=== PATIENT | female | born 1960 | race Caucasian/White ===

== ENCOUNTER 2025-09-11 07:47 | Outpatient (OUT) | payer OTHER, SELFPAY ==
--- OUTSIDE RECORDS SUMMARY | 2025-09-08 09:15 | XMS_ITS ---
Author Organization [facility] in [place] Address [address] [place] [address] Care Team Providers Care Reading Interventionist Name Role Phone MarianoPablo kwongel Primary Care Provider Allergies No Known Allergies Results Component Value Reference Range Notes FERRITIN Reviewed date:09/10/2025 02:34:47 PM Interpretation: Performing Lab: Notes/Report: FERRITIN 526 IRON AND TIBC (WITH SAT) Reviewed date:09/10/2025 02:34:47 PM Interpretation: Performing Lab: Notes/Report: IRN 124 TIBC 371 %SAT 33 TSH Reviewed date:09/10/2025 02:34:47 PM Interpretation: Performing Lab: Notes/Report: TSH 2.01 HEMOGLOBIN A1C - IN OFFICE Reviewed date:09/10/2025 02:34:47 PM Interpretation: Performing Lab: Notes/Report: HEMOGLOBIN A1C - IN OFFICE 5.8 4.4 - 6.4 VITAMIN B12 LEVEL AND FOLATE (FOLIC ACID) Reviewed date:09/10/2025 02:34:47 PM Interpretation: Performing Lab: Notes/Report: VITAMIN B12 331 FOLATE, SERUM >22.3 CMP (COMP MET ALEXANDER) w/eGFR CK D-EPI Reviewed date:09/10/2025 02:34:47 PM Interpretation: Performing Lab: Notes/Report: GLUCOSE (FBS) 119 BUN (UREA NTORGEN) 34 CREATININE 1.7 GFR CKD 33 SODIUM (NA) 135 POTASSIUM (K) 4.5 CHLORIDE (CL) 99 CARBON DIOXIDE 24 CALCIUM 10.9 ALBUMIN, BLOOD 4.2 PROTEIN, TOTAL (TP) 7.7 ALKALINE PHOSPHATE (ALP) 78 ALT (SGPT) 10 AST (SGOT) 17 BILIRUBIN, TOTAL 0.5 CBC WITH DIFF Reviewed date:09/10/2025 02:34:47 PM Interpretation: Performing Lab: Notes/Report: WBC 5.4 RBC 3.5 HEMOGLOBIN 12.2 HEMATOCRIT 34.9 MCV 98.7 MCH 34.5 MCHC 34.9 RDW-SD 14.7 PLT 419.0 REASON FOR VISIT sob Medications Medication SIG (Take, Route, Frequency, Duration) Notes Start Date End Date Status Gemfibrozil 600 MG 1 tablet Orally a day Active Folic Acid 1 MG 1 tablet Orally 6 da ys a week(not wednesdays) Active Fluticasone-Salmeterol 250-50 MCG/ACT 1 puff Inhalation Twice a day 02/01/2024 Active Eletriptan Hydrobromide 40 MG 1 tablet Orally prn prn Active Cyproheptadine HCl 4 MG 1 tablet Orally once daily Active Caltrate 600 Active Albuterol Sulfate HFA 108 (90 Base) MCG/ACT 2 puffs Inhalation q6 hours prn; Duration: 30 days 02/28/2024 Active Albuterol Sulfate HFA 108 (90 Base) MCG/ACT 2 puffs Inhalation q6 hours prn; Duration: 30 days 09/08/2025 Active metFORMIN HCl ER 500 MG 2 tablet Orally bid Active Jardiance 10 MG 1 tablet Orally Once a day 05/14/2025 Active Fluticasone-Salmeterol 250-50 MCG/ACT 1 puff Inhalation Twice a day Unknown Sucralfate 1 GM 1 tablet on an empty stomach Orally Twice a day Unknown Polyethylene Glycol 3350 17 GM/SCOOP as directed Orally Unknown Pioglitazone HCl 30 MG 1 tablet Orally O nce a day Unknown Humira 40 MG/0.8ML 0.8 ml Subcutaneous Unknown Farxiga 5 MG 1 tablet Orally Once a day; Duration: 30 day(s) Unknown Cyclobenzaprine HCl 10 MG 1 tablet Orally bid Unknown Ajovy 225 MG/1.5ML 1.5 ml Subcutaneous Unknown Advair Diskus 250-50 MCG/ACT 1 puff Inhalation Twice a day; Duration: 90 days Unknown Actos 30 MG 1 tablet Orally Once a day Unknown Zonisamide 100 MG 2 capsules Orally On ce a day Active Vitamin D 5000IU Active Propranolol HCl ER 160 MG 1 capsule Oral ly Once a day Active Pantoprazole Sodium 40 MG 1 tablet Orall y BID; Duration: 90 days Active Multivitamin Active Methotrexate Sodium 2.5 MG 5 tablets Ora lly qweekly(monday) Active Social History Tobacco Use: Social History Observation Description Date Details (start date - stop date) Former Smoker NA - 11/27/1989 Tobacco Use/Smoking Question Answer Notes Patient is a former smoker When did you stop smoking? 11/27/1989 Problems Problem Type SNOMED Code ICD Code Onset Dates Problem Status W/U Status Risk Notes Problem Chronic obstructive pulmonary disease ([id number]) Chronic obstructive pulmonary disease, unspecified (J44.9) Active confirmed Vital Signs Weight 147.5 lbs 09/08/2025 Height 62 in 09/08/2025 Blood pressure systolic 126 mm Hg 09/08/20 25 Blood pressure diastolic 88 mm Hg 025 Heart Rate 75 /min 09/08/2025 Respiratory Rate 16 /min 09/08/2025 BMI 26.98 kg/m2 09/08/2025 Oximetry 99 % 09/08/2025 Encounters Encounter Location Date Provider Diagnosis [facility] [address] [place] [address] 09/08/2025 Kai Mariano Diabetes mellitus du e to underlying condition with diabetic chronic kidney disease E08.22 ; Other forms of dyspnea R06.09 ; Other fatigue R53.83 ; Chronic obstructive pulmonary disease, unspecified J44.9 ; Overweight E66.3 and Body mass index [BMI] 26.0-26.9, adult Z68.26 Assessments Encounter Date Diagnosis (ICD Code) Assessment Notes Treatment Notes Treatment Clinical Notes Section Notes 09/08/2025 Diabetes mellitus due to underlying condition with diabetic chronic kidney disease (ICD-10 - E08.22) a1c today stable diet/exercise monitor bs eye exam yearly - dilated foot exam daily 09/08/2025 Other forms of dyspnea (ICD-10 - R06.09) prob anemia - labs to be done STAT CTA chest to r/o PE as cause of sudden DAMIAN ?infection 09/08/2025 Other fatigue (ICD-10 - R53.83) labs - tx if abnormal d/w pt that she is probably anemia - ?iron def d/w pt that she is due for colonoscopy and rec she reach out to GI 09/08/2025 Chronic obstructive pulmonary disease, unspecified (ICD-10 - J44.9) monitor pft rec vaccines UTD 09/08/2025 Overweight (ICD-10 - E66.3) diet/exercise 09/08/2025 Body mass index [BMI] 26.0-26.9, adult (ICD-10 - Z68.26) Plan Of Treatment Medication Medication Name Sig Start Date Stop Date Notes Fluticasone-Salmeterol 250-5 0 MCG/ACT 1 puff Inhalation Twice a day 02/01/2024 Albuterol Sulfate HFA 108 (9 0 Base) MCG/ACT 2 puffs Inhalation q6 hours prn; Duration: 30 days 09/08/2025 metFORMIN HCl ER 500 MG 2 tablet Orally bid Jardiance 10 MG 1 tablet Orally Once a day 05/14/2025 Treatment Notes Assessment Notes Diabetes mellitus due to und erlying condition with diabetic chronic kidney disease a1c today stable diet/exercise monitor bs eye exam yearly - dilated foot exam daily Other forms of dyspnea prob anemia - labs to be done STAT CTA chest to r/o PE as cause of sudden DAMIAN ?infection Other fatigue labs - tx if abnormal d/w pt that she is probably anemia - ?iron def d/w pt that she is due for colonoscopy and rec she reach out to GI Chronic obstructive pulmonar y disease, unspecified monitor pft rec vaccines UTD Overweight diet/exercise Pending Test Test Name Order Date CTA Chest 09/08/2025 Next Appt Details Provider Name:Kai madden, 11/13/2025 01:15:00 PM, [address] [place], [address], Progress Notes * Torrie ARORADOB:1960 (65 yo F)Acc No.[id number]:09/08/2025 Established Patient: Torrie NEFF Provider: Kristy Mariano DO :1960 A ge:65 Y S ex:Female Date:09/08/2025 Address:[address] [place] [address], [facility] Check In:01:08 PM ESTCheck O ut:01:46 PM EST Subjective: * Chief Complaints: * S ob * HPI: G eneral: patient presents today for shortness of breath when moving around for about a week. increased fatigue. some night sweats. shes tried taking tylenol with no relief.- ED +DAMIAN x 1 week mildly dry cough no f/c/URI s/s +occ night sweats +fatigue +general weakness no LE edema +lightheaded no palp no syncope no chest pain no UE tingling using advair bid pt going to [place] later this week looks fatigued no bleeding -------- 04/2025 Hb 12.8, Cr 0.9, GFR 71 08/2025 Hb 11.3(L), Cr 1.4, GFR 42. * ROS: G eneral/Constitutional: Significant change in weight d enies. E xercise Intolerance d enies. N ight sweats a dmits. F ever d enies. E yes: Dry eyes D enies. V ision changes d enies. ? E NMT: Sore Throat d enies. N ose Bleeds d enies. D ifficulty hearing d enies. E ar pain d enies. N ose/sinus problems d enies. S noring d enies. B leeding gums d enies. D ry mouth d enies. M outh ulcers denies. O ral abnormalities d enies. T eeth problems d enies. C ardiovascular: Shortness of Breath w/Walking a dmits. S hortness of Breath w/lying flat d enies. A rm pain on exertion d enies. C hest pain d enies. H eart murmur d enies. P alpitations d enies. R espiratory: Coughing up blood d enies. C ough a dmits. S hortness of breath a dmits. W heezing d enies. G astrointestinal: Change in appetite d enies. V omiting blood d enies. A bdominal pain d enies. C onstipation d enies. D iarrhea d enies. V omiting d enies. G enitourinary: Dysuria/Increased Frequency d enies. H ematuria d enies. I ncontinence d enies. D ifficulty urinating d enies. M usculoskeletal: Swelling in the extremities d enies. A rthralgias/joint pain A dmits. B ack pain d enies. W eakness of muscles a dmits. M uscle aches d enies. S kin: Jaundice D enies. M ole(s) d enies. R vipin d enies. N eurologic: Dizziness a dmits. L oss of consciousness d enies.?Numbness d enies. W eakness a dmits. H eadache a dmits. S eizures d enies. P sychiatric: Alcohol abuse d enies. F eeling safe in relationship?denies. D epression d enies. A nxiety d enies. S leep Disturbances d enies. E ndocrine: Fatigue a dmits. H ematologic/Lymphatic: Swollen Glands d enies. B ruising d enies. ? A llergy/Immunology: Runny nose d enies. S inus pressure d enies. F requent sneezing d enies. H aleksandar d enies. I tching d enies. * Active Problem List M51.36 Other intervertebral disc degeneration, lumbar region Modified On:04/07/2022 Status:confirmed L30.9 Dermatitis, unspecif ied Modified On:04/07/2022 Status:confirmed K21.00 Gastro-esophageal re flux disease with esophagitis, without bleeding Modified On:12/13/2022 Status:confirmed E78.2 Mixed hyperlipidemia Modified On:12/13/2022 Status:confirmed M85.80 Other specified diso rders of bone density and structure, unspecified site Modified On:04/07/2022 Status:confirmed M41.86 Other forms of scoli osis, lumbar region Modified On:04/07/2022 Status:confirmed K76.0 Fatty (change of) li peggy, not elsewhere classified Modified On:04/07/2022 Status:confirmed K59.09 Other constipation Modified On:04/07/2022 Status:confirmed M51.26 Other intervertebral disc displacement, lumbar region Modified On:04/07/2022 Status:confirmed E08.22 Diabetes mellitus du e to underlying condition with diabetic chronic kidney disease Modified On:11/24/2023 Status:confirmed N18.30 Chronic kidney disea se, stage 3 unspecified Modified On:11/24/2023 Status:confirmed E66.09 Other obesity due to excess calories Modified On:05/04/2022 Status:confirmed Z68.32 Body mass index [BMI ] 32.0-32.9, adult Modified On:05/08/2023 Status:confirmed M06.9 Rheumatoid arthritis , involving unspecified site, unspecified whether rheumatoid factor present Modified On:05/08/2023 Status:confirmed G43.009 Migraine without aur a and without status migrainosus, not intractable Modified On:12/13/2022 Status:confirmed J43.9 Pulmonary emphysema, unspecified emphysema type Modified On:01/30/2023 Status:confirmed Z68.31 BMI 31.0-31.9,adult Modified On:01/30/2023 Status:confirmed E55.9 Vitamin D deficiency Modified On:11/24/2023 Status:confirmed E78.5 Dyslipidemia Modified On:01/30/2023 Status:confirmed E11.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 Modified On:05/08/2023 Status:confirmed N18.31 Chronic kidney disea se, stage 3a Modified On:05/08/2023 Status:confirmed G89.29 Other chronic pain Modified On:11/24/2023 Status:confirmed R53.82 Chronic fatigue, uns pecified Modified On:11/24/2023 Status:confirmed E66.9 Obesity, unspecified Modified On:11/24/2023 Status:confirmed Z68.30 Body mass index [BMI ] 30.0-30.9, adult Modified On:11/24/2023 Status:confirmed R13.10 Dysphagia, unspecifi ed Modified On:05/13/2024 Status:confirmed E66.3 Overweight Modified On:11/13/2024/U Status:confirmed K21.9 Gastro-esophageal re flux disease without esophagitis Modified On:11/13/2024/U Status:confirmed E83.42 Hypomagnesemia Modified On:11/13/2024/U Status:confirmed N18.2 Chronic kidney disea se, stage 2 (mild) Modified On:06/08/2025/U Status:confirmed J44.9 Chronic obstructive pulmonary disease, unspecified Modified On:09/08/2025/U Status:confirmed * Medical History: * Surgical History: c ytoscopy colonoscopy 06/27/2012EGD 11/27/2004hysterectomy 11/27/2003c-section 06/27/1997colonoscopy - 08/05/2022 - dr lewis - [facility] [place] - normal - repeat 3 years EGD - 2023 +dilation * Hospitalization/Major Diagno stic Procedure: N o Hospitalization History. * Family History: F ather: , malignant tumor of lung. M other: , coronary arteriosclerosis, diabetes mellitus, malignant tumor of colon - - 2022. 1 daughter(s) . . * Social History: T obacco Use: T obacco Use/Smoking P atient is a f ormer smoker W hen did you stop smoking? 0 11/27/1989 * Medications: T akingAlbuterol Sulfate HFA 108 (90 Base) MCG/ACT Aerosol Solution 2 puffs Inhalation q6 hours prn Caltrate 600 Cyproheptadine HCl 4 MG Tablet 1 tablet Orally once daily Eletriptan Hydrobromide 40 MG Tablet 1 tablet Orally prn , Notes to Pharmacist: prnFluticasone-Salmeterol 250-50 MCG/ACT Aerosol Powder Breath Activated 1 puff Inhalation Twice a day Folic Acid 1 MG Tablet 1 tablet Orally 6 days a week(not wednesdays) Gemfibrozil 600 MG Tablet 1 tablet Orally Twice a day Jardiance(Empagliflozin) 10 MG Tablet 1 tablet Orally Once a day metFORMIN HCl ER 500 MG Tablet Extended Release 24 Hour 2 tablet Orally bid Methotrexate Sodium 2.5 MG Tablet 5 tablets Orally qweekly(monday) Multivitamin Pantoprazole Sodium 40 MG Tablet Delayed Release 1 tablet Orally BID Propranolol HCl ER 160 MG Capsule Extended Release 24 Hour 1 capsule Orally Once a day Vitamin D , Notes to Pharmacist: 5000IUZonisamide 100 MG Capsule 2 capsules Orally Once a day Taking Albuterol Sulfate HFA 108 (90 Base) MCG/ACT Aerosol Solution 2 puffs Inhalation q6 hours prn Taking Caltrate 600 Taking Cyproheptadine HCl 4 MG Tablet 1 tablet Orally once daily Taking Eletriptan Hydrobromide 40 MG Tablet 1 tablet Orally prn , Notes to Pharmacist: prnTaking Fluticasone-Salmeterol 250-50 MCG/ACT Aerosol Powder Breath Activated 1 puff Inhalation Twice a day Taking Folic Acid 1 MG Tablet 1 tablet Orally 6 days a week(not wednesdays) Taking Gemfibrozil 600 MG Tablet 1 tablet Orally Twice a day Taking Jardiance(Empagliflozin) 10 MG Tablet 1 tablet Orally Once a day Taking metFORMIN HCl ER 500 MG Tablet Extended Release 24 Hour 2 tablet Orally bid Taking Methotrexate Sodium 2.5 MG Tablet 5 tablets Orally qweekly(monday) Taking Multivitamin Taking Pantoprazole Sodium 40 MG Tablet Delayed Release 1 tablet Orally BID Taking Propranolol HCl ER 160 MG Capsule Extended Release 24 Hour 1 capsule Orally Once a day Taking Vitamin D , Notes to Pharmacist: 5000IUTaking Zonisamide 100 MG Capsule 2 capsules Orally Once a day UnknownActos(Pioglitazone HCl) 30 MG Tablet 1 tablet Orally Once a day Advair Diskus(Fluticasone-Salmeterol) 250-50 MCG/ACT Aerosol Powder Breath Activated 1 puff Inhalation Twice a day Ajovy(Fremanezumab-vfrm) 225 MG/1.5ML Solution Prefilled Syringe 1.5 ml Subcutaneous Cyclobenzaprine HCl 10 MG Tablet 1 tablet Orally bid Farxiga(Dapagliflozin Propanediol) 5 MG Tablet 1 tablet Orally Once a day Fluticasone-Salmeterol 250-50 MCG/ACT Aerosol Powder Breath Activated 1 puff Inhalation Twice a day Humira(Adalimumab) 40 MG/0.8ML Prefilled Syringe Kit 0.8 ml Subcutaneous Pioglitazone HCl 30 MG Tablet 1 tablet Orally Once a day Polyethylene Glycol 3350 17 GM/SCOOP Powder as directed Orally Sucralfate 1 GM Tablet 1 tablet on an empty stomach Orally Twice a day Medication List reviewed and reconciled with the patientUnknown Actos(Pioglitazone HCl) 30 MG Tablet 1 tablet Orally Once a day Unknown Advair Diskus(Fluticasone-Salmeterol) 250-50 MCG/ACT Aerosol Powder Breath Activated 1 puff Inhalation Twice a day Unknown Ajovy(Fremanezumab-vfrm) 225 MG/1.5ML Solution Prefilled Syringe 1.5 ml Subcutaneous Unknown Cyclobenzaprine HCl 10 MG Tablet 1 tablet Orally bid Unknown Farxiga(Dapagliflozin Propanediol) 5 MG Tablet 1 tablet Orally Once a day Unknown Fluticasone-Salmeterol 250-50 MCG/ACT Aerosol Powder Breath Activated 1 puff Inhalation Twice a day Unknown Humira(Adalimumab) 40 MG/0.8ML Prefilled Syringe Kit 0.8 ml Subcutaneous Unknown Pioglitazone HCl 30 MG Tablet 1 tablet Orally Once a day Unknown Polyethylene Glycol 3350 17 GM/SCOOP Powder as directed Orally Unknown Sucralfate 1 GM Tablet 1 tablet on an empty stomach Orally Twice a day Medication List reviewed and reconciled with the patient * Allergies: N .K.D.A.no[Allergies Verified] Objective: * Vitals: W t:147.5lbs, Ht: 62 in, BP:126/88mm Hg, HR:75/min, RR:16/min, BMI:26.98Index, Oxygen sat %:99%, Wt-k.91 kg. * Examination: G eneral Examination: GENERAL APPEARANCE: + looks fatigued and pale, well nourished , well developed Level of distress: NAD, + mild limp, overweight. ENMT: E ACs clear, TMs clear, no hearing loss, no lesions on external ears, nares patent, nasal passages clear, no sinus tenderness, no nasal discharge, no mouth or lip ulcers, no bleeding gums, moist mucous membranes, no erythema, no exudates. HEAD: n ormocephalic, atraumatic. EYES: n on-injected, no discharge, +b/l conj pale, PERRLA , EOMI, sclera non-icteric, peripheral vision grossly intact, acuity grossly intact. LUNGS: n o dyspnea, breath sounds normal , good air movement, CTA except as noted, no wheezing, no rales/crackles, no rhonchi. CARDIO: n ot displaced, RRR, S1, S2 normal , no murmurs, rubs, gallops , no carotid bruits, normal throughout. ABDOMEN: n ormal bowel sounds , soft, non tender, not distended, no guarding, no rebound tenderness, no masses, no CVA tenderness, liver non tender, no hepatomegaly. BACK: n ormal curvature. MUSCULOSKELETAL: + general weakness UE/LE b/l, normal movement of all extremities, +OA changes b/l hands, no contractures, no malalignment, no tenderness. SKIN: n o rash, no lesions, no ulcer, no abnormal nevi, no induration, no nodules, good turgor, no jaundice. EXTREMITIES: No edema. NEUROLOGIC: c ranial nerves grossly intact, sensation grossly intact, no tremor. PSYCH: j udgement and insight good, active and alert, normal mood, normal affect, orientation to time, to place, to person, recent memory normal, remote memory normal. NECK/THYROID: N renee supple, trachea midline, no masses, FROM, no cervical LAD, no enlargement, non-tender, no nodules. Assessment: * Assessment: 1. D iabetes mellitus due to underlying condition with diabetic chronic kidney disease - E08.22 (Primary) 2 . O ther forms of dyspnea - R06.09 3 . O ther fatigue - R53.83 4 . C hronic obstructive pulmonary disease, unspecified - J44.9 5. O verweight - E66.3 6 . B blayne mass index [BMI] 26.0-26.9, adult - Z68.26 Plan: * Treatment: 2. O ther forms of dyspnea I maging: CTA Chest Notes: prob anemia - labs to be done STAT CTA chest to r/o PE as cause of sudden DAMIAN ?infection??3.?Other fatigue?LAB: FERRITIN ?LAB: IRON AND TIBC (WITH SAT) ?LAB: TSH ?LAB: VITAMIN B12 LEVEL AND FOLATE (FOLIC ACID) ?LAB: CMP (COMP MET ALEXANDER) w/eGFR CKD-EPI ?LAB: CBC WITH DIFF Notes: labs - tx if abnormal d/w pt that she is probably anemia - ?iron def d/w pt that she is due for colonoscopy and rec she reach out to GI ??4.?Chronic obstructive pulmonary disease, unspecified? Start Albuterol Sulfate HFA Aerosol Solution, 108 (90 Base) MCG/ACT, 2 puffs, Inhalation, q6 hours prn, 30 days, 1, Refills 0;?Continue Fluticasone-Salmeterol Aerosol Powder Breath Activated, 250-50 MCG/ACT, 1 puff, Inhalation, Twice a day.?? Notes: monitor pft rec vaccines UTD ??5.?Overweight? Notes: diet/exercise ?? * Labs: * L ab: HEMOGLOBIN A1C - IN OFFICE (Collection Date & Time - 09/08/2025) Value Reference Range H EMOGLOBIN A1C - IN OFFICE 5.8 4.4 - 6.4 * Procedure Codes: 3 079F DIAST BP 80-89 MM [id number] SYST BP LT 130 MM [id number] HEMOGLOBIN; GLYCATED, Modifiers: QW * * Sign off status: Completed Visit Status: C HK (Check Out) true * Provider: Kristy Mariano DO Date: Generated for Jose E madden/Karla/Mj on: 07:55 AM EDT History and Physical Notes * HPI (History of Present Illness) Category Sub-Category Detail Notes Category Not es General patient presents today for shortness of breath when moving around for about a week. increased fatigue. some night sweats. shes tried taking tylenol with no relief.-ED +DAMIAN x 1 week mildly dry cough no f/c/URI s/s +occ night sweats +fatigue +general weakness no LE edema +lightheaded no palp no syncope no chest pain no UE tingling using advair bid pt going to [place] later this week looks fatigued no bleeding -------- 04/2025 Hb 12.8, Cr 0.9, GFR 71 08/2025 Hb 11.3(L), Cr 1.4, GFR 42 Examination Category Sub-Category Detail Notes Category Not es General Examination GENERAL APPEARANCE: +looks f atigued and pale, well nourished , well developed Level of distress: NAD, +mild limp, overweight EYES: non-injected, no dis charge, +b/l conj pale, PERRLA , EOMI, sclera non- icteric, peripheral vision grossly intact, acuity grossly intact CARDIO: not displaced, RRR, S1, S2 normal , no murmurs, rubs, gallops , no carotid bruits, normal throughout LUNGS: no dyspnea, breath s ounds normal , good air movement, CTA except as noted, no wheezing, no rales/crackles, no rhonchi ABDOMEN: normal bowel sounds , soft, non tender, not distended, no guarding, no rebound tenderness, no masses, no CVA tenderness, liver non tender, no hepatomegaly NEUROLOGIC: cranial nerves gross ly intact, sensation grossly intact, no tremor SKIN: no rash, no lesions, no ulcer, no abnormal nevi, no induration, no nodules, good turgor, no jaundice EXTREMITIES: No edema BACK: normal curvature MUSCULOSKELETAL: +general weakness UE /LE b/l, normal movement of all extremities, +OA changes b/l hands, no contractures, no malalignment, no tenderness PSYCH: judgement and insigh t good, active and alert, normal mood, normal affect, orientation to time, to place, to person, recent memory normal, remote memory normal ENMT: EACs clear, TMs josselyn r, no hearing loss, no lesions on external ears, nares patent, nasal passages clear, no sinus tenderness, no nasal discharge, no mouth or lip ulcers, no bleeding gums, moist mucous membranes, no erythema, no exudates HEAD: normocephalic, atrau matic NECK/THYROID: Neck supple, trachea midline, no masses, FROM, no cervical LAD, no enlargement, non-tender, no nodules
--- OUTSIDE RECORDS SUMMARY | 2025-09-10 05:10 | XMS_ITS ---
Author Organization The [facility] in [place] Address [address] [place] [address] Care Team Providers Care Glove Turner And Former Name Role Phone Kai Mariano Primary Care Provider [phone] REASON FOR VISIT stat echo Vital Signs Height 62 in 09/10/2025 Procedures Procedure Date Ordered Date Performed Result Body Sit e Echocardiogram 09/10/2025 N/A Encounters Encounter Location Date Provider Diagnosis [facility] [address] [place] [address] 09/10/2025 Kai Mariano Shortness of breath R06.02 and Chest pain, unspecified R07.9 Assessments Encounter Date Diagnosis (ICD Code) Assessment Notes Treatment Notes Treatment Clinical Notes Section Notes 09/10/2025 Shortness of breath (ICD-10 - R06.02) 09/10/2025 Chest pain, unspecified (ICD-10 - R07.9) Plan Of Treatment Pending Test Test Name Order Date Echocardiogram 09/10/2025 Next Appt Details Provider Name:Kai madden, 11/13/2025 01:15:00 PM, [address] [place], [address], Progress Notes * Torrie ARORADOB:1960 (65 yo F)Acc No.[id number]:09/10/2025 Patient: Torrie NEFF :1960 A ge:65 Y S ex:Female Address:[address] [place] [address] [address] [place], [address] Subjective: * Chief Complaints: * S tat echo * Medical History: * Surgical History: * Hospitalization/Major Diagno stic Procedure: * Medications: Objective: * Vitals: H t: 62 in. * Physical Examination: Assessment: * Assessment: 1. S hortness of breath - R06.02 (Primary) 2 . C hest pain, unspecified - R07.9 Plan: * Treatment: 2. C hest pain, unspecified P rocedure: Echocardiogram * Procedure Codes: * true * Date: Generated for Jose E madden/Karla/Aryansmitting on: 1 07:55 AM EDT
--- OUTSIDE RECORDS SUMMARY | 2025-09-11 07:56 | XMS_ITS | Clinical Summary ---
Author Organization [facility] Address [facility] [place] [address] Care Team Providers Care [employer] Name Role Phone Kai Mariano DO Primary Care Provider Allergies No known active allergies Medications Omeprazole 40 mg capsule Take 40 mg by mouth once daily. Active gemfibrozil 600 mg tablet Take 600 mg by mouth twice daily before meals. Active propranolol LA (INDERAL LA) 160 mg Cs24 Take 160 mg by mouth once daily. Active propranolol LA 60 mg 24 hr capsule Take 60 mg by mouth once daily. Active ZONISAMIDE ORAL Take 125 mg by mouth. Active adalimumab (HUMIRA) 40 mg/0.8 mL injection Inject 40 mg subcutaneously every 2 weeks. Active alendronate 70 mg tablet Take 70 mg by mouth once each week. Active eletriptan (RELPAX) 40 mg tablet Take 40 mg by mouth as needed. may repeat in 2 hours if necessary Active CALCIUM CITRATE/VITAMIN D3 (CITRACAL + D ORAL) Take by mouth. Activ e ondansetron orally disintegrating 4 mg disintegrating tablet Take 1 tablet by mouth every 4 hours as needed for Nausea/Vomiting. 8 tablet 0 03/19/20 14 Active Social History Tobacco Use Types Packs/Day Years Used Date Smoking Tobacco: Never Assessed Comments Unknown Sex and Gender Information Value Date Recorded Sex Assigned at Not on file Legal Sex Female 1:55 PM EDT Gender Identity Not on file Sexual Orientation Not on file Last Filed Vital Signs Vital Sign Reading Time Taken Comments Blood Pressure 143/94 03/19/2014 2:05 PM EDT Pulse 95 03/19/2014 2:05 PM EDT Temperature 36.8 C (98.2 F) 03/19/2014 2:05 PM EDT Respiratory Rate 18 03/19/2014 2:05 PM EDT Oxygen Saturation 100% 03/19/2014 2:05 PM EDT Inhaled Oxygen Concentration - - Weight - - Height - - Body Mass Index - - Plan of Treatment Not on file Care Teams [employer] Relationship Specialty Start Date End Date Kai Mariano DO PCP - General 03/19/14
--- OUTSIDE RECORDS SUMMARY | 2025-09-11 07:56 | XMS_ITS | Clinical Summary ---
Author Organization [facility] Address [address] [place] [address] Care Team Providers Care [employer] Pilot Name Role Phone Kai Mariano MD Unavailable [phone] Allergies No known active allergies Medications pantoprazole (ProtoNix) 40 MG EC tablet Take 40 mg by mouth in the morning. Take before meals. Do not crush, chew, or split.. Active gemfibrozil (Lopid) 600 MG tablet Take 600 mg by mouth in the morning and 600 mg before bedtime. Active Fluticasone-Salm eterol (Advair Diskus) 250-50 MCG/ACT aerosol powder Inhale Active metFORMIN (Glucophage) 500 MG tablet Take 500 mg by mouth in the morning and 500 mg in the evening. Take with meals. Active ZONISAMIDE PO Take by mouth Ac tive methylPREDNISolo ne (Medrol Dospak) 4 MG tabletsIndicatio ns:Arthralgia of right foot Take as directed on package. 21 tablet 4 Active methotrexate 2.5 MG tablet Take 2.5 mg by mouth 1 (one) time per week. 4 tablets a week 4 Active folic acid (Folvite) 1 MG tablet Take 1 mg by mouth Daily 4 Active cyproheptadine (Periactin) 4 MG tabletIndication s:Migraine without status migrainosus, not intractable, unspecified migraine type 1 1/2-2 tablets orally at bedtime 180 tablet 1 4 Active eletriptan (Relpax) 40 MG tabletIndication s:Migraine without aura and without status migrainosus, not intractable TAKE 1 TABLET AT ONSET OF HEADACHE, MAY REPEAT ONE TIME 18 tablet 5 4 Active propranolol LA (Inderal LA) 160 MG 24 hr capsuleIndicatio ns:Migraine without aura and without status migrainosus, not intractable Take 1 capsule (160 mg) by mouth Daily Do not crush, chew, or split. 90 capsule 1 5 Active zonisamide (Zonegran) 100 MG capsuleIndicatio ns:Migraine without aura and without status migrainosus, not intractable TAKE 2 CAPSULES AT BEDTIME 180 capsule 3 5 Active cyclobenzaprine (Flexeril) 10 MG tabletIndication s:Neck pain 1 po qam, 1/2 po afternoon, 1 po qhs 225 tablet 1 5 Active Active Problems Problem Noted Date Diagnosed Date Unsteady 09/20/2023 Assessment & Plan (05/27/2024 9:47 PM EDT): *01/10/2024 Addie Srivastava EMG revealed bilateral S1 radiculopathies, mild in degree electrically. She continues with unsteadiness manifested as difficulty initiating movement with her legs and spinning sensation with her eyes closed. She is also feeling lightheaded. VNG 09/29/2023 did not reveal vestibular dysfunction. Unsteadiness has resolved. Paresthesia 09/06/2023 Neck pain 08/01/2018 Assessment & Plan (05/27/2024 9:42 PM EDT): *01/10/2024 Addie Srivastava Neck pain likely causes cervicogenic headache treated with flexeril. Trigger injections typically provide benefit, although she did not have benefit with the last trigger injections. She is following with rheumatology. She recently had a flare in symptoms but this has improved. The paresthesia in her hands improved. She completed PT without benefit. PCP ordered an MRI of the cervical spine and MRI for her shoulders. She is going to hold off on the MRIs for now. 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 Symptoms are improving Lumbosacral radiculopathy 01/17/2014 Assessment & Plan (05/27/2024 9:44 PM EDT): *11/14/2023 Addie Srivastava No further back pain. EMG in 2013 revealed a bilateral S1 radiculopathy but symptoms had resolved. In the past 2 weeks, she started having tingling in her bilateral feet and unsteadiness. BLE EMG 09/14/2023 revealed findings consistent with S1 radiculopathies, mild in degree electrically essentially unchanged when compared to EMG in 2013. This could explain her paresthesias on the bottoms of her feet. She was also found to have low vitamin B12, which may be contributing to her symptoms. PCP ordered lumbar spine MRI, and she is waiting to schedule. Migraine 06/12/2008 Assessment & Plan (05/27/2024 9:39 PM EDT): *01/10/2024 Addie Srivastava Headaches made up of migraines. No longer on Ajovy due to cost. Aimovig was ineffective. Treated with cyproheptadine, flexeril, zonegran, propranolol, and relpax. She has failed multiple preventative medications and abortive medications. She responds to medrol dose packs and trigger injections have helped in the past. Trigger injections became ineffective. She did check with her insurance company who advised that emgality, nurtec, qulipta would all be considered Tier 4 medications and patient would not be able to afford. Amitriptyline was trialed at last visit and patient did not notice benefit and stopped taking after a month. Weather changes are triggers. Brain MRI updated 10/05/2023 due to increase in symptoms despite medications and revealed no acute process and nonspecific white matter findings. Headaches are stable. Immunizations Immunization Administration Dates Next Due Influenza, injectable, MDCK, preservative free, quadrivalent 09/14/2018,10/02/2017 Influenza, injectable, quadr ivalent, preservative free 11/08/2023,09/20/2021,09/01/2020,09/30,09/12/2016 Pneumococcal Conjugate PCV 13 10/16/2017 Pneumococcal Polysaccharide PPSV23 11/26/2012,,11/27/2010 Zoster, Recombinant 07/23/2019,01/09/2019 Zoster, live 05/26/2015 Family History Medical History Relation Name Comments Lung cancer Father Colon cancer Mother Diabetes Mother Heart disease Mother Stroke Mother Relation Name Status Comments Father Mother Social History Tobacco Use Types Packs/Day Years Used Date Smoking Tobacco: Former Cigarettes Smokeless Tobacco: Never Alcohol Use Standard Drinks/Week Comments Not Currently 0 (1 standard drink = 0.6 oz pur e alcohol) Comments Unknown Sex and Gender Information Value Date Recorded Sex Assigned at Not on file Legal Sex Female 7:10 PM EDT Gender Identity Not on file Sexual Orientation Not on file Last Filed Vital Signs Vital Sign Reading Time Taken Comments Blood Pressure 124/82 03/31/2025 12:46 PM EDT Pulse 70 03/31/2025 12:46 PM EDT Temperature - - Respiratory Rate 16 03/31/2025 12:46 PM EDT Oxygen Saturation 98% 03/31/2025 12:46 PM EDT Inhaled Oxygen Concentration - - Weight 72.1 kg (159 lb) 03/31/2025 12:46 PM EDT Height 157.5 cm (5' 2 ) 03/31/2025 12:46 PM EDT Body Mass Index 29.08 03/31/2025 12:46 PM EDT Plan of Treatment Not on file Insurance [employer] Care Teams [employer] 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
--- OUTSIDE RECORDS SUMMARY | 2025-09-11 07:56 | XMS_ITS | Patient Health Record ---
Author Organization [facility] in [place] Address [address] [place] [address] Care Team Providers Care Warp Hanger Name Role Phone Kai Mariano Primary Care Provider Allergies No Known Allergies [...] 34.5 MCHC 34.9 RDW-SD 14.7 PLT 419.0 HEMOGLOBIN A1C - IN OFFICE Reviewed date:05/14/2025 01:09:39 PM Interpretation:6.3 Performing Lab: Notes/Report: 6.3 HEMOGLOBIN A1C - IN OFFICE 6.3 4.4 - 6.4 HEMOGLOBIN A1C - IN OFFICE Reviewed date:11/14/2024 10:23:42 AM Interpretation:5.7 Performing Lab: Notes/Report: 5.7 HEMOGLOBIN A1C - IN OFFICE 5.7 4.4 - 6.4 MICROALBUMIN with ALB/CREAT RATIO, URINE (MALB)) Reviewed date:05/09/2025 11:53:44 AM Interpretation: Performing Lab: Notes/Report: Reason For Referral No Information Medications Medication SIG (Take, Route, Frequency, Duration) Notes Start Date End Date Status Cyclobenzaprine HCl 10 MG 1 tablet Orally bid Unknown Caltrate 600 Active Albuterol Sulfate HFA 108 (90 Base) MCG/ACT 2 puffs Inhalation q6 hours prn; Duration: 30 days 02/28/2024 Active Fluticasone-Salmeterol 250-50 MCG/ACT 1 puff Inhalation Twice a day Unknown Farxiga 5 MG 1 tablet Orally Once a day; Duration: 30 day(s) Unknown Gemfibrozil 600 MG 1 tablet Orally Twic e a day Active Folic Acid 1 MG 1 tablet Orally 6 ys a week(not wednesdays) Active Fluticasone-Salmeterol 250-50 MCG/ACT 1 puff Inhalation Twice a day 02/01/2024 Active Eletriptan Hydrobromide 40 MG 1 tablet Orally prn prn Active Cyproheptadine HCl 4 MG 1 tablet Orally once daily Active Sucralfate 1 GM 1 tablet on an empty stomach Orally Twice a day Unknown Polyethylene Glycol 3350 17 GM/SCOOP as directed Orally Unknown metFORMIN HCl ER 500 MG 2 tablet Orally bid Active Pioglitazone HCl 30 MG 1 tablet Orally O nce a day Unknown Jardiance 10 MG 1 tablet Orally Once a day 05/14/2025 Active Humira 40 MG/0.8ML 0.8 ml Subcutaneous Unknown Doxycycline Hyclate 100 MG 1 capsule Ora lly BID; Duration: 10 days 09/09/2025 Active Methotrexate Sodium 2.5 MG 5 tablets Ora lly qweekly(monday) Active Ajovy 225 MG/1.5ML 1.5 ml Subcutaneous Unknown Advair Diskus 250-50 MCG/ACT 1 puff Inhalation Twice a day; Duration: 90 days Unknown Actos 30 MG 1 tablet Orally Once a day Unknown Zonisamide 100 MG 2 capsules Orally On ce a day Active Albuterol Sulfate HFA 108 (90 Base) MCG/ACT 2 puffs Inhalation q6 hours prn; Duration: 30 days 09/08/2025 Active Vitamin D 5000IU Active Propranolol HCl ER 160 MG 1 capsule Oral ly Once a day Active Pantoprazole Sodium 40 MG 1 tablet Orall y BID; Duration: 90 days Active Multivitamin Active Immunizations Vaccine Route Administration Date Status Comme nts Flu, Fluarix (4407-9351) (89235) 6 mos and older, single-dose IM Intramuscular 11/08/2023 Administered Flu, Flucelvax (77406) 6 mos and older, single-dose syringe (1978-9667) IM Intramuscular 11/13/2024 Administered Pneumococcal (Pneumovax 23) Unknown 11/27/2010 Administered Pneumococcal (Pneumovax 23) Unknown 03/30/2011 Administered Pneumococcal (Pneumovax 23) Unknown 11/26/2012 Administered Pneumococcal (Prevnar 13) Unknown 10/16/2017 Administer ed Shingrix (Zoster) Unknown 01/09/2019 Administered Shingrix (Zoster) Unknown 07/23/2019 Administered Social History Tobacco Use: Social History Observation Description Date Details (start date - stop date) Former Smoker NA - 11/27/1989 Tobacco Use/Smoking Question Answer Notes Patient is a former smoker When did you stop smoking? 11/27/1989 Alcohol Screen (Audit-C) Question Answer Notes Did you have a drink containing alcohol in the p ast year? No Points 0 Interpretation Negative Problems Problem Type SNOMED Code ICD Code Onset Dates Problem Status W/U Status Risk Notes Problem Gastro-esophageal reflux disease without esophagitis (389227680) Gastro-esophagea l reflux disease without esophagitis (K21.9) Active confirmed Problem Chronic obstructive pulmonary disease (67105554) Chronic obstructive pulmonary disease, unspecified (J44.9) Active confirmed Problem Nephropathy due to secondary diabetes mellitus (473263354261497) Diabetes mellitus due to underlying condition with diabetic chronic kidney disease (E08.22) Active confirmed Problem Diabetic renal disease (829726275) Type 2 diabetes mellitus with diabetic chronic kidney disease (E11.22) Active confirmed Problem Obesity due to excess calories (869924727) Other obesity due to excess calories (E66.09) Active confirmed Problem Overweight (327014581) Overweight (E66.3) Active confirmed Problem Obesity (844236668) Obesity, unspecified (E66.9) Active confirmed Problem Mixed hyperlipidemia (153748363) Mixed hyperlipidemia (E78.2) Active confirmed continue gemfibrozil 600mg bid - erx done last month lab yearly rec lipitor 10mg daily - pt to hold off diet/exercis e LDL goal less than70 ?add fish oil if TG still elevated Problem Hypomagnesemia (722615645) Hypomagnesemia (E83.42) Active confirmed Problem Chronic pain (19666846) Other chronic pain (G89.29) Active confirmed Problem Constipation (29272997) Other constipation (K59.09) Active confirmed continue fiber/mirala x as directed diet monitor/stab le Problem Fatty liver (428985814) Fatty (change of) liver, not elsewhere classified (K76.0) Active confirmed incidental finding on CT 2018; d/w pt diet and f/u w/ PCP to determine if US is needed in the future Problem Dermatitis (301364725) Dermatitis, unspecified (L30.9) Active confirmed Problem Lumbar spine scoliosis (806942207) Other forms of scoliosis, lumbar region (M41.86) Active confirmed rec weight loss posture PT if worsens Problem Displacement of lumbar intervertebral disc without myelopathy (48218448) Other intervertebral disc displacement, lumbar region (M51.26) Active confirmed Problem Degeneration of lumbar intervertebral disc (74362672) Other intervertebral disc degeneration, lumbar region (M51.36) Active confirmed ?PT or pain management if worsens rec weight loss Problem Disorder of bone (53497924) Other specified disorders of bone density and structure, unspecified site (M85.80) Active confirmed set up dexa exercise rec ca + d Problem Chronic kidney disease stage 2 (620028168) Chronic kidney disease, stage 2 (mild) (N18.2) Active confirmed Problem Dysphagia (82394944) Dysphagia, unspecified (R13.10) Active confirmed Problem Chronic fatigue syndrome (disorder) (17056482) Chronic fatigue, unspecified (R53.82) Active confirmed Problem Dyslipidemia (296858070) Dyslipidemia (E78.5) Active confirmed Problem Vitamin D deficiency (52907040) Vitamin D deficiency (E55.9) Active confirmed Problem Pulmonary emphysema (68000481) Pulmonary emphysema, unspecified emphysema type (J43.9) Active confirmed Problem Migraine without aura, not refractory (616963223) Migraine without aura and without status migrainosus, not intractable (G43.009) Active confirmed Problem Body mass index 30.00 to 34.99 (971302780937997) BMI 31.0-31.9,adult (Z68.31) Active confirmed Problem Gastroesophageal reflux disease with esophagitis (disorder) (647209013) Gastro-esophagea l reflux disease with esophagitis, without bleeding (K21.00) Active confirmed continue protonix 40mg bid diet hold on carafate due to hard taking the pill Problem Chronic kidney disease stage 3 (disorder) (692257276) Chronic kidney disease, stage 3 unspecified (N18.30) Active confirmed Problem Chronic kidney disease stage 3A (disorder) (145608636) Chronic kidney disease, stage 3a (N18.31) Active confirmed Problem Body mass index 30.00 to 34.99 (878744627320420) Body mass index [BMI] 32.0-32.9, adult (Z68.32) Active confirmed Problem Rheumatoid arthritis (10572630) Rheumatoid arthritis, involving unspecified site, unspecified whether rheumatoid factor present (M06.9) Active confirmed Problem Body mass index 30+ - obesity (486947875) Body mass index [BMI] 30.0-30.9, adult (Z68.30) Active confirmed Vital Signs Heart Rate 75 /min 09/08/2025 Respiratory Rate 16 /min 09/08/2025 Oximetry 99 % 09/08/2025 Blood pressure diastolic 88 mm Hg 09/08/2025 Height 62 in 09/10/2025 Blood pressure systolic 126 mm Hg 09/08/2025 Weight 147.5 lbs 09/08/2025 BMI 26.98 kg/m2 09/08/2025 Procedures Procedure Date Ordered Date Performed Result Body Sit e Echocardiogram 09/10/2025 N/A Encounters Encounter Location Date Provider Diagnosis [place] [address] [place] [address] 12/11/2024 Kai Mariano [facility] [address] [place] [address] 01/09/2025 Kai Mariano Gastro-esophageal reflux disease without esophagitis K21.9 [facility] [place] [address] [place] [address] 06/17/2025 Kai Mariano [facility] [address] [place] [address] 06/20/2025 Kai Mariano Gastro-esophageal reflux disease with esophagitis, without bleeding K21.00 [place] [address] [place] [address] 08/25/2025 Kai Mariano Diabetes mellitus du e to underlying condition with diabetic chronic kidney disease E08.22 [place] [address] [place] [address] 05/14/2025 Kai Mariano Diabetes mellitus du e to underlying condition with diabetic chronic kidney disease E08.22 ; Encounter for screening mammogram for malignant neoplasm of breast Z12.31 ; Overweight E66.3 ; Body mass index [BMI] 28.0-28.9, adult Z68.28 ; Mixed hyperlipidemia E78.2 ; Gastro-esophageal reflux disease with esophagitis, without bleeding K21.00 ; Rheumatoid arthritis, involving unspecified site, unspecified whether rheumatoid factor present M06.9 ; Migraine without aura and without status migrainosus, not intractable G43.009 ; Vitamin D deficiency E55.9 and Chronic kidney disease, stage 2 (mild) N18.2 [place] [address] [place] [address] 09/08/2025 Kai Mariano Diabetes mellitus du e to underlying condition with diabetic chronic kidney disease E08.22 ; Other forms of dyspnea R06.09 ; Other fatigue R53.83 ; Chronic obstructive pulmonary disease, unspecified J44.9 ; Overweight E66.3 and Body mass index [BMI] 26.0-26.9, adult Z68.26 [place] [address] [place] [address] 11/13/2024 Kai Mariano Diabetes mellitus du e to underlying condition with diabetic chronic kidney disease E08.22 ; Mixed hyperlipidemia E78.2 ; Rheumatoid arthritis, involving unspecified site, unspecified whether rheumatoid factor present M06.9 ; Migraine without aura and without status migrainosus, not intractable G43.009 ; Vitamin D deficiency E55.9 ; Dysphagia, unspecified R13.10 ; Deficiency of other specified B group vitamins E53.8 ; Encounter for immunization Z23 ; Overweight E66.3 ; Body mass index [BMI] 28.0-28.9, adult Z68.28 ; Encounter for general adult medical examination without abnormal findings Z00.00 ; Gastro-esophageal reflux disease without esophagitis K21.9 ; Hypomagnesemia E83.42 ; Other specified disorders of bone density and structure, right thigh M85.851 and Other specified disorders of bone density and structure, left thigh M85.852 [facility] [address] [place] [address] 11/13/2024 [facility] [address] [place] [address] 05/06/2025 [facility] [address] [place] [address] 09/08/2025 [facility] [address] [place] [address] 09/10/2025 Kai [facility] Shortness of breath R06.02 and Chest pain, unspecified R07.9 Assessments Encounter Date Diagnosis (ICD Code) Assessment Notes Treatment Notes Treatment Clinical Notes Section Notes 11/13/2024 Diabetes mellitus due to underlying condition with diabetic chronic kidney disease (ICD-10 - E08.22) a1c today controlled - monitor bs check daily eye exam yearly - dilated foot exam daily rtc 6 months monitor urine microalbumin 11/13/2024 Mixed hyperlipidemia (ICD-10 - E78.2) rec statin labs yearly LDL goal <70 diet/exercise 05/14/2025 Diabetes mellitus due to underlying condition with diabetic chronic kidney disease (ICD-10 - E08.22) d/w pt GLP-1 meds pt to start jardiance for renal protection a1c today stable and controlled rtc 6 months diet/exercise eye exam yearly - dilated foot exam daily 05/14/2025 Encounter for screening mammogram for malignant neoplasm of breast (ICD-10 - Z12.31) 09/08/2025 Diabetes mellitus due to underlying condition with diabetic chronic kidney disease (ICD-10 - E08.22) a1c today stable diet/exercise monitor bs eye exam yearly - dilated foot exam daily 09/08/2025 Other forms of dyspnea (ICD-10 - R06.09) prob anemia - labs to be done STAT CTA chest to r/o PE as cause of sudden DAMIAN ?infection 09/10/2025 Shortness of breath (ICD-10 - R06.02) 09/10/2025 Chest pain, unspecified (ICD-10 - R07.9) 01/09/2025 Gastro-esophageal reflux disease without esophagitis (ICD-10 - K21.9) 06/20/2025 Gastro-esophageal reflux disease with esophagitis, without bleeding (ICD-10 - K21.00) 08/25/2025 Diabetes mellitus due to underlying condition with diabetic chronic kidney disease (ICD-10 - E08.22) 09/08/2025 Other fatigue (ICD-10 - R53.83) labs - tx if abnormal d/w pt that she is probably anemia - ?iron def d/w pt that she is due for colonoscopy and rec she reach out to GI 05/14/2025 Overweight (ICD-10 - E66.3) diet/exercise 11/13/2024 Rheumatoid arthritis, involving unspecified site, unspecified whether rheumatoid factor present (ICD-10 - M06.9) f/u rheum stable 11/13/2024 Migraine without aura and without status migrainosus, not intractable (ICD-10 - G43.009) f/u neuro as directed PROCTOR log controlled 05/14/2025 Body mass index [BMI] 28.0-28.9, adult (ICD-10 - Z68.28) 09/08/2025 Chronic obstructive pulmonary disease, unspecified (ICD-10 - J44.9) monitor pft rec vaccines UTD 09/08/2025 Overweight (ICD-10 - E66.3) diet/exercise 05/14/2025 Mixed hyperlipidemia (ICD-10 - E78.2) uncontrolled LDL goal <70 diet/exercise lab yearly rec statin 11/13/2024 Vitamin D deficiency (ICD-10 - E55.9) 11/13/2024 Dysphagia, unspecified (ICD-10 - R13.10) diet add pepcid in case GERD a cause s/p dilation f/u GI prn get copy of EGD done at [facility] 05/14/2025 Gastro-esophageal reflux disease with esophagitis, without bleeding (ICD-10 - K21.00) diet stable 09/08/2025 Body mass index [BMI] 26.0-26.9, adult (ICD-10 - Z68.26) 05/14/2025 Rheumatoid arthritis, involving unspecified site, unspecified whether rheumatoid factor present (ICD-10 - M06.9) f/u rheum as directed rec keeping UTD on vaccines - flu/rsv/pn/etc 11/13/2024 Deficiency of other specified B group vitamins (ICD-10 - E53.8) labs rec B12 daily but will wait for labs first diet 11/13/2024 Encounter for immunization (ICD-10 - Z23) 05/14/2025 Migraine without aura and without status migrainosus, not intractable (ICD-10 - G43.009) stable PROCTOR log rtc 6 months 05/14/2025 Vitamin D deficiency (ICD-10 - E55.9) stable rec 2000 IU daily monitor lab 11/13/2024 Overweight (ICD-10 - E66.3) diet/exercise 11/13/2024 Body mass index [BMI] 28.0-28.9, adult (ICD-10 - Z68.28) 05/14/2025 Chronic kidney disease, stage 2 (mild) (ICD-10 - N18.2) monitor bmp and urine microalbumin yearly start jardiance BP/BS control stable 11/13/2024 Encounter for general adult medical examination without abnormal findings (ICD-10 - Z00.00) rec rsv vaccine rec dtap q10 years rec prevnar 20 diet/exercise eye and dental exams labs colonoscopy in 2024 rec alicia yearly rec dexa q2 years 11/13/2024 Gastro-esophageal reflux disease without esophagitis (ICD-10 - K21.9) diet rec tums prn d/w pt that we can change to dexilant or add carafate if s/s worsen 11/13/2024 Hypomagnesemia (ICD-10 - E83.42) labs - tx based on this 11/13/2024 Other specified disorders of bone density and structure, right thigh (ICD-10 - M85.851) rec ca + d d/w pt fosamax - rec holding off due to dysphagia and GERD dexa in 202411/13/2024 Other specified disorders of bone density and structure, left thigh (ICD-10 - M85.852) see above Plan Of Treatment Pending Test Test Name Order Date CMP (COMPLETE METABOLIC PANEL) 4 LIPID PANEL (CHOL/TRIG/HDL/LDL) 11/13/20 24 CBC WITH DIFF 11/13/2024 VITAMIN D, 25 LEVEL (TOTAL) 11/13/2024 Echocardiogram 09/10/2025 CTA Chest 09/08/2025 MRI Cervical Spine w/o contrast * 2022 MRI Shoulder LT w/o contrast 11/08/2023 MRI Shoulder RT w/o contrast 11/08/2023 MRI Lumbar Spine w/o contrast 11/08/2023 MAMM SCREEN BILAT GANGA 3D* 11/02/2022 VITAMIN B12 LEVEL AND FOLATE (FOLIC ACID ) 11/13/2024 MAMM SCREEN BILAT GANGA 3D GLOBAL* 2024 Next Appt Details Provider Name:Kai Brannon maryanne, 11/13/2025 01:15:00 PM, [address] [place], [address], Insurance Providers Payer Name Payer Address Payer Phone Subscriber Number Group Number Insured Name Patient Relationship to Insured Coverage Start Date Coverage End Date MMO [address] [place], [place] [id number] Torrie Iverson Self - patient is the insured 4 Medical (General) History Medical History History ICD Code COPD degeneration of lumbar intervertebral di sc eczema GERD kidney stone migraine hyperlipidemia osteopenia rheumatoid arthritis scoliosis of lumbar spine steatosis of liver type 2 DM umbilical hernia chronic constipation CKD stage 2 prolapsed lumbar intervertebral disc vitamin D deficiency esophageal stricture Surgical History Surgery Date(Month/Year) EGD 11/27/2004 colonoscopy 06/27/2012 cytoscopy hysterectomy 11/27/2003 06/27/1997 colonoscopy - 08/05/2022 - dr lewis - [facility] - normal - repeat 3 years EGD - 2023 +dilation
--- NOTE | 2025-09-11 08:00 | CA_ITS ---
Patient Name: KIRSTEN NUNEZ MR#: [id number] : 1960 Exam Date: 09/11/2025 Ordering Doctor: DR CHYNA SAHA D.O. ECHOCARDIOGRAM REPORT PROCEDURE: CA ECHO DOPPLER COMPLETE INDICATIONS: Shortness of breath, chest pain, diabetes, COPD COMPARISON: None. DESCRIPTION: COMPLETE ECHOCARDIOGRAM Real-time transthoracic echocardiography with 2D, M-mode, spectral and color flow Doppler performed. QUALITY: Technical quality was good. LEFT VENTRICLE: Normal chamber size. Normal left ventricular wall thickness. LV EF: Global left ventricular systolic function is normal; visually estimated ejection fraction 60 to 65%. No significant wall motion abnormalities. DIASTOLIC: Normal diastolic function. ATRIAL SEPTUM: Visually appears intact. LEFT ATRIUM: Normal chamber size. RIGHT ATRIUM: Normal chamber size. RIGHT VENTRICLE: Normal chamber size. Normal right ventricular systolic function. TRICUSPID VALVE: Normal mobility and thickness. No stenosis with no regurgitation. MITRAL VALVE: Normal mobility and thickness. No evidence of mitral valve stenosis. There is no mitral annular calcification. No mitral regurgitation. AORTIC VALVE: Normal trileaflet appearance. No visible sclerosis. Normal leaflet mobility. No evidence of aortic valve stenosis. No aortic regurgitation. AORTIC ROOT: Normal diameter and appearance. PULMONIC VALVE: Normal thickness and mobility. No stenosis. No regurgitation. PERICARDIUM: No evidence of pericardial effusion. IVC: Collapses with inspiration. CONCLUSION: 1. Global left ventricular systolic function is normal; visually estimated ejection fraction is 60 to 65% 2. Normal right ventricular size and systolic function 3. Normal diastolic function 4. The left atrium is normal in size 5. No significant valvular abnormalities Adult Echocardiography Procedure Report Left Ventricle LVEDD (3.7 - 5.6 cm): 3.82 cm LVESD (2.2 - 4.0 cm): 2.46 cm LVIVS thickness (0.6 - 1.2 cm): 0.95 cm LVPW thickness (0.5 - 1.0 cm): 0.90 cm e': 0.10 m/s E - e': 4.54 LVOT Max Gradient: 4.05 mm[Hg] LVOT Area (cm2): 1.01 m/s Peak Velocity (LVOT): 1.01 m/s Mean Velocity (LVOT): 0.68 m/s LVOT Diameter 1.90 cm Left Ventricular Ejection Fraction: 59.61 % Left Atrium LA Volume Index (2D A2C): 19.47 ml/m2 Left Atrium Systolic Dimension: 2.84 cm Mitral Valve MV E to A Ratio: 0.63 Mitral Valve A-Wave Peak Velocity: 0.69 m/s Mitral Valve E-Wave Peak Velocity: 0.44 m/s Right Ventricle Aorta AO Root Diam: 3.06 cm Aortic Valve AoV Area (Peak Juan A): 2.62 cm2, 2.62 cm2 AoV Area (VTI): 2.38 cm2, 2.38 cm2 Peak Velocity(Antegrade Flow): 1.09 m/s Peak Gradient(Antegrade Flow): 4.76 mm[Hg] Mean Velocity(Antegrade Flow): 0.74 m/s Mean Gradient(Antegrade Flow): 2.55 mm[Hg] Velocity Time Integral: 20.12 cm Tricuspid Valve Pulmonic Valve Peak Gradient: 1.55 mm[Hg], 1.63 mm[Hg] Right Atrium Right Atrium Systolic Pressure: 24.36 ml, 24.36 ml Dictated by: Jake Cobb M.D. on 09/11/2025 at 15:59 Approved by: Jake Cobb M.D. on 09/11/2025 at 16:01
== END 2025-09-11 07:48 | disposition home or self-care (01) ==
PROVIDERS: Family Provider Family Medicine; PCP Family Medicine; Visit Provider Family Medicine
DX: R06.02 Shortness of breath (principal); R07.9 Chest pain, unspecified
CPT/HCPCS: 93306